=== PATIENT | female | born 1980 | race Caucasian/White ===

== ENCOUNTER 2017-03-09 10:43 | Day surgery (SDC) | payer BC ==
[~2017-03-09 10:43] MED LIST: Lactated Ringers 1,000 ML IV SCH; Lidocaine 1%/Sod Bicarbonate in NS 8.4% 1 ML Syringe IV PRN; Sodium Chloride 0.9% 10 ML Syringe FLUSH PRN
--- NOTE | 2017-03-09 11:14 | PCM.HP ---
H&P History of Present Illness - General Date of Service: 03/09/17 Admit Problem/Dx: Neck Lipoma Source of Information: Patient - History of Present Illness Initial Comments - Free Text/Narative: 35 yo F referred by GAVIOTA Todd Patient was last evaluated by Dr. Dinora Stanford on 11/04/16. She reports no changes in health history since last visit. She does report the last month and a half she has had some intermittent tenderness to the lipoma. She did stop smoking on Tuesday. She has some nasal stuffiness due to allergies. At the last visit she reported: 1 yr ago noticed neck mass, went to [facility] and was told it was a swollen salivary gland Has enlarged, no drainage, erythema, pain, would like excised US 09/29/16 - 4 x 1.2 cm hyperechoic mass c/w lipoma Continues to: Deny pain, dysphagia, voice changes, chest pain, respiratory symptoms, denies constipation/diarrhea Has GERD take PRN Omeprazole Strong family hx of cardiac disease ROS - Wears glasses, sinus problems, balance problems, GERD/heartburn, Sleep apnea, UTI, Hx of Prednisone for respiratory infection, menstrual cycle problems , swollen glands/lymph nodes, depression, broken L clavicle. - Related Data Allergies/Adverse Reactions: Allergies Allergy/AdvReac Type Severity Reaction Status Date / Time No Known Allergies Allergy Verified 03/08/17 16:02 Home Medications: Home Meds Omeprazole/Sodium Bicarbonate [Zegerid OTC 20-1,100 MG] 1 cap PO DAILY PRN 03/08 [History] Past Medical History HEENT History: Reports: Impaired Vision, Other (See Below) Other HEENT History: inner ear dysfunction, sinus congestion, wears glasses Cardiovascular History: Reports: None Respiratory History: Reports: Sleep Apnea Gastrointestinal History: Reports: GERD Genitourinary History: Reports: None SUPPLY SPECIALIST History: Reports: None Musculoskeletal History: Reports: Other (See Below) Other Musculoskeletal History: clavicle fracture Neurological History: Reports: Vertigo Psychiatric History: Reports: Depression Endocrine/Metabolic History: Reports: None Hematologic History: Reports: None Immunologic History: Reports: None Oncologic (Cancer) History: Reports: None Dermatologic History: Reports: None - Past Surgical History Head Surgeries/Procedures: Reports: None Social & Family History - Tobacco Use Smoking Status *Q: Current Every Day Smoker - Caffeine Use Caffeine Use: Reports: Coffee, Energy Drinks, Soda - Recreational Drug Use Recreational Drug Use: No Drug Use in Last 12 Months: No H&P Review of Systems - Review of Systems: Review Of Systems: See Below General: Reports: No Symptoms. Denies: Fever, Chills HEENT: Reports: No Symptoms Pulmonary: Reports: No Symptoms. Denies: Shortness of Breath, Wheezing, Cough Cardiovascular: Reports: No Symptoms. Denies: Chest Pain, Palpitations Gastrointestinal: Reports: No Symptoms. Denies: Abdominal Pain, Black Stool, Bloody Stool, Constipation, Diarrhea, Nausea, Vomiting Genitourinary: Reports: No Symptoms Musculoskeletal: Reports: No Symptoms Skin: Reports: Other (see hpi) Psychiatric: Reports: No Symptoms Neurological: Reports: No Symptoms Hematologic/Lymphatic: Reports: No Symptoms Immunologic: Reports: No Symptoms Exam - Exam Exam: See Below - Exam General: Alert, Oriented HEENT: Conjunctiva Clear. No: Scleral Icterus Neck: Supple Lungs: Clear to Auscultation, Normal Respiratory Effort Cardiovascular: Regular Rate, Regular Rhythm, Normal S1, Normal S2. No: Systolic Murmur, Diastolic Murmur, Rubs Abdomen: Soft Back Exam: Normal Inspection Extremities: Normal Inspection, Normal Pulses. No: Clubbing, Edema Skin: Warm, Dry, Intact (right neck lipoma, anteriorly) Neuro Extensive - Mental Status: Alert, Oriented x3, Normal Mood/Affect, Normal Cognition Psychiatric: Alert, Normal Affect, Normal Mood *Q Meaningful Use (ADM) - VTE *Q VTE Criteria *Q: - Stroke *Q Stroke Criteria *Q: - AMI *Q AMI Criteria *Q: - Problem List (1) Lipoma SNOMED Code(s): 02062478 ICD Code: D17.9 - BENIGN LIPOMATOUS NEOPLASM, UNSPECIFIED Status: Acute Current Visit: Yes Qualifiers: Lipoma location: neck Qualified Code(s): D17.0 - Benign lipomatous neoplasm of skin and subcutaneous tissue of head, face and neck Problem List Initiated/Reviewed/Updated: Yes Orders Last 24hrs: Active Orders 24 hr Category Date Time Status Peripheral IV Care [RC] . DIRECTED Care 03/09/17 00:01 Active Verify Patient Consent Obtain [RC] ASDIRECTED Care 03/09/17 00:01 Active HCG QUALITATIVE,URINE [URCHEM] Routine Lab 03/09/17 10:55 Ordered Lactated Ringers [Ringers, Lactated] 1,000 ml Med 03/09/17 00:01 Active IV ASDIRECTED Lidocaine 1%/Sod Bicarbonate [Buffered Lidocaine 1% in Med 03/09/17 00:01 Active NS 8.4%] 0.25 ml IV ONETIME PRN Sodium Chloride 0.9% [Saline Flush] Med 03/09/17 00:01 Active 10 ml FLUSH ASDIRECTED PRN Medication Administration Instruction [OM.PC] Routine Oth 03/09/17 00:01 Ordered Peripheral IV Insertion Adult [OM.PC] Routine Ot 03/09/17 00:01 Ordered Medication Orders Lactated Ringer's (Ringers, Lactated) 1,000 mls @ 125 mls/hr IV ASDIRECTED LIOR Lidocaine/Sodium Bicarbonate (Buffered Lidocaine 1% In Ns 8.4%) 0.25 ml IV ONETIME PRN PRN Reason: Prior to IV Start Sodium Chloride (Saline Flush) 10 ml FLUSH ASDIRECTED PRN PRN Reason: Keep Vein Open Assessment/Plan Comment:: Lipoma of neck Plan: We discussed excision of the lipoma. She did want to have the procedure with sedation. Risks of the procedure were discussed with the patient including pain, bleeding, recurrence of the lipoma (about 10%), need for additional procedures, damage to surrounding structures, scarring, infection, and risks of anesthesia. They found these risks acceptable and agreed to proceed. Due to her BMI of 53.8, her procedure will be at [facility]. This patient was evaluated with Dr. Dinora Stanford, plan formulated with Dr. Dinora Stanford. Jazmin Salvador NP scribing for Dr. Dinora Stanford
[2017-03-09] MEDS ORDERED: Lidocaine 1% with EPINEPHrine 1:100,000 20 ML MDV ONE (11:18)
[2017-03-09] MEDS ORDERED: Bupivacaine 0.5%/EPINEPHrine 1:200,000 50 ML MDV ONE (11:19)
--- NOTE | 2017-03-09 11:51 | PCM.PREANE ---
Preanesthetic Assessment - Procedure Proposed Procedure: Excision of neck lipoma - Anesthesia/Transfusion/Family Hx Anesthesia History: No Prior Anesthesia Family History of Anesthesia Reaction: No Transfusion History: No Prior Transfusion(s) Intubation History: Unknown - Review of Systems General: No Symptoms Pulmonary: Other (MELODY- brought CPAP with to hospital. Quit smoking Tuesday 03/06. Seasonal allergies. ) Cardiovascular: No Symptoms Gastrointestinal: Other (GERD) Neurological: Headache (Infrequent) Other: Reports: Sinus Problem (Seasonal), Depression - Physical Assessment NPO Status Date: 03/09/17 NPO Status Time: 01:00 Pulse: 77 O2 Sat by Pulse Oximetry: 96 Respiratory Rate: 20 Blood Pressure: 154/87 Temperature: 36.6 C Vital Signs: Last Vital Signs Temp 36.6 C 03/09/17 10:55 Pulse 77 03/09/17 10:55 Resp 20 03/09/17 10:55 BP 154/87 H 03/09/17 10:55 Pulse Ox 96 03/09/17 10:55 Height: 1.78 m Weight: 175.994 kg ASA Class: 2 Mental Status: Alert & Oriented x3 Airway Class: Mallampati = 1 Dentition: Reports: Normal Dentition Thyro-Mental Finger Breadths: 3 Mouth Opening Finger Breadths: 3 ROM/Head Extension: Full Lungs: Clear to auscultation, Normal respiratory effort Cardiovascular: Regular Rate, Regular Rhythm - Lab Values: Laboratory Last Values Urine HCG, Qual Negative (NEGATIVE) 03/09/17 10:55 Labs reviewed and ok to proceed with planned procedure - Allergies Allergies/Adverse Reactions: Allergies Allergy/AdvReac Type Severity Reaction Status Date / Time No Known Allergies Allergy Verified 03/08/17 16:02 - Acknowledgements Anesthesia Type Planned: MAC Pt an Appropriate Candidate for the Planned Anesthesia: Yes Alternatives and Risks of Anesthesia Discussed w Pt/Guardian: Yes Pt/Guardian Understands and Agrees with Anesthesia Plan: Yes PreAnesthesia Questionnaire HEENT History: Reports: Impaired Vision, Other (See Below) Other HEENT History: inner ear dysfunction, sinus congestion, wears glasses Cardiovascular History: Reports: None Respiratory History: Reports: Sleep Apnea Gastrointestinal History: Reports: GERD Genitourinary History: Reports: None ART DEALER History: Reports: None Musculoskeletal History: Reports: Other (See Below) Other Musculoskeletal History: clavicle fracture Neurological History: Reports: Vertigo Psychiatric History: Reports: Depression Endocrine/Metabolic History: Reports: None Hematologic History: Reports: None Immunologic History: Reports: None Oncologic (Cancer) History: Reports: None Dermatologic History: Reports: None - Past Surgical History Head Surgeries/Procedures: Reports: None - SUBSTANCE USE Smoking Status *Q: Current Every Day Smoker (Quite Tuesday prior to surgery) Days Per Week of Alcohol Use: 2 Number of Drinks Per Day: 2 Total Drinks Per Week: 4 Recreational Drug Use History: No - HOME MEDS Home Medications: Home Meds Omeprazole/Sodium Bicarbonate [Zegerid OTC 20-1,100 MG] 1 cap PO DAILY PRN 03/08 [History] - CURRENT (IN HOUSE) MEDS Current Meds: Current Medications Lactated Ringer's (Ringers, Lactated) 1,000 mls @ 125 mls/hr IV ASDIRECTED LIOR Last Admin: 03/09/17 11:20 Dose: 125 mls/hr Lidocaine/Sodium Bicarbonate (Buffered Lidocaine 1% In Ns 8.4%) 0.25 ml IV ONETIME PRN PRN Reason: Prior to IV Start Last Admin: 03/09/17 11:20 Dose: 0.25 ml Sodium Chloride (Saline Flush) 10 ml FLUSH ASDIRECTED PRN PRN Reason: Keep Vein Open Discontinued Medications Bupivacaine HCl/Epinephrine Bitart (Marcaine 0.5%/Epinephrine 1:200,000) Confirm Administered Dose 50 ml .ROUTE .STK-MED ONE Stop: 03/09/17 11:20 Lidocaine/Epinephrine (Xylocaine 1% With Epinephrine 1:100,000) Confirm Administered Dose 20 ml .ROUTE .STK-MED ONE Stop: 03/09/17 11:19
[2017-03-09] MEDS ORDERED: Propofol 200 MG/20 ML SDV ONE (12:03)
[2017-03-09] MEDS ORDERED: fentaNYL 100 MCG/2 ML SDV ONE ×2 (12:03→14:09)
[2017-03-09] MEDS ORDERED: Midazolam 1 MG/ML 2 ML SDV ONE ×3 (12:04→13:38)
[2017-03-09] MEDS ORDERED: ceFAZolin 1 GM Vial ONE (12:05)
[2017-03-09] MEDS ORDERED: Rocuronium 50 MG/5 ML Vial ONE (13:46)
[2017-03-09] MEDS ORDERED: Ondansetron 4 MG/2 ML SDV ONE (13:59)
[2017-03-09] MEDS ORDERED: Neostigmine Methylsulfate 1 MG/ML 5 ML Syringe ONE (13:59)
[2017-03-09] MEDS ORDERED: Dexamethasone 4 MG/ML SDV ONE (13:59)
[2017-03-09] MEDS ORDERED: Lactated Ringers 1,000 ML ONE (13:59)
--- NOTE | 2017-03-09 14:30 | PCM.OPNOTE ---
- General Post-Op/Procedure Note Date of Surgery/Procedure: 03/09/17 Operative Procedure(s): Excision of submuscular neck lipoma Pre Op Diagnosis: 1. Neck lipoma. 2. BMI 55.7. 3. Sleep apnea. 4. GERD Post-Op Diagnosis: Submuscular neck lipoma Anesthesia Technique: General ET tube, Local (5 mL) Primary Surgeon: Dinora Stanford Anesthesia Provider: Luz Maria Francis Pathology: Neck lipoma Fluid Replacement, Intraop: 800 (mL crystalloid ) EBL in mLs: 1 Complications: None Condition: Good Free Text/Narrative:: INDICATION FOR PROCEDURE: The patient is a 36-year-old woman who had been referred to me by GAVIOTA Bassett for evaluation of a neck mass. On ultrasound this appeared consistent with a lipoma. Due to the patient's adiposity, the apparent depth of the lipoma as well as its size, excision in the operating room was planned. Risks and benefits had been reviewed with her. She found these risks acceptable and agreed to proceed. DESCRIPTION OF PROCEDURE: The patient was taken to the operating room and placed in the supine position. Her arms were tucked at her sides bilaterally. A transverse subscapular roll was placed. The patient was initially sedated, however she was anesthesia elected to insert an advanced airway. Endotracheal intubation was performed without difficulty. The patient was then prepped and draped in usual sterile fashion with the neck in extension in a gel doughnut. The lipoma had been preoperatively marked by myself and the patient. Local anesthetic was injected in the area of the planned incision. A 5 cm skin incision was made using a scalpel which was deepened down through the subcutaneous fat with electrocautery. The platysma was noted, the lipoma was present underneath the platysma. The fibers of the platysma were able to be , without being incised, to extract the lipoma. The lipoma itself measured approximately 5 cm x 4 cm. Some subcutaneous fat was excised along with the lipoma. The deeper tissues were then reapproximated using 3-0 Vicryl suture. The skin was closed using a running 4-0 Monocryl subcuticular suture. Dermabond was applied. The patient was awakened from sedation, extubated, and transferred to the recovery room in stable condition having tolerated the procedure well. Sponge and instrument counts reported as correct at the end of the case. POSTOPERATIVE PLAN: I discussed with the patient's my intraoperative findings and recommendations. She may return to work whenever she desires. She is not to perform any strenuous activities for the next 2 weeks. She is to follow-up in approximately 1-2 weeks for a wound check and discussion of pathology. She is to call with any questions or concerns. A prescription for [place] 5/325mg, 1 tablet every 6 hours as needed for pain was provided.
[2017-03-09] MEDS ORDERED: Ondansetron 4 MG/2 ML SDV IVPUSH PRN (14:43)
[2017-03-09] MEDS ORDERED: fentaNYL 100 MCG/2 ML SDV IVPUSH PRN (14:43)
--- NOTE | 2017-03-09 14:45 | PCM.POSTAN ---
POST ANESTHESIA ASSESSMENT - MENTAL STATUS Mental Status: alert, oriented - VITAL SIGNS Pulse Rate: 95 SaO2: 93 Resp Rate: 25 Blood Pressure: 147/61 Temperature: 37.2 C - RESPIRATORY Respiratory Status: respiratory rate WNL, airway patent, O2 saturation stable, supplemental oxygen - CARDIOVASCULAR CV Status: pulse rate WNL, blood pressure stable - GASTROINTESTINAL GI Status: no symptoms - PAIN Pain Score: 0 - POST OP HYDRATION Hydration Status: adequate & stable
[2017-03-09 15:38] VITALS: BP 132/76
[2017-03-09] MEDS ORDERED: HYDROmorphone 0.5 MG/0.5 ML Syringe IVPUSH PRN (15:45)
[2017-03-09] MEDS ORDERED: Meperidine PF 50 MG/ML Syringe IVPUSH PRN (15:45)
== END 2017-03-09 15:55 | disposition home or self-care (01) ==
LOC: JD.SDS 10:43
PROVIDERS: ATTEND Surgery
DX: D17.0 Benign lipomatous neoplasm of skin and subcutaneous tissue of head, face and neck (principal); G47.33 Obstructive sleep apnea (adult) (pediatric); K21.9 Gastro-esophageal reflux disease without esophagitis; F32.9 Major depressive disorder, single episode, unspecified; F17.210 Nicotine dependence, cigarettes, uncomplicated; E66.9 Obesity, unspecified; Z68.43 Body mass index [BMI] 50.0-59.9, adult; Z79.899 Other long term (current) drug therapy
CPT/HCPCS: 21552; 81025; J0690; J1100; J2250; J2405; J2710; J3010; J7120; 00300; J2704